=== PATIENT | female | born 1955 | race Caucasian/White ===

== ENCOUNTER 2018-06-24 17:32 | Inpatient (IN) ==
[2018-06-24] MEDS ORDERED: Vancomycin Inj 1,000 MG in Sodium Chlor 0.9% Inj 250 ML IV.SIG STA (17:46)
--- NOTE | 2018-06-24 17:50 | ED ---
HPI General Chief Complaint: Back Pain/Injury Stated Complaint: back pain complaint Time Seen by Provider: 06/24/18 17:46 Source: patient Mode of arrival: ambulatory Limitations: no limitations History of Present Illness HPI Narrative: Patient comes in complaining of a back pain for the past [address] partida orthopedist ordered outpatient noncontrast MRI which showed discitis and r/o osteomyelitis....an outpt MRI with contrast done and read by radiologist as disciitis at t10-t11 MD Complaint: Reports back pain Onset (ago): month(s) (2) Duration: Reports constant Location: Reports thoracic spine Severity: mild Quality: Reports sharp Radiation: Reports none Relieving factors: none Exacerbating factors: none Associated symptoms: Reports denies other symptoms Related Data Home Medications Medication Instructions Recorded Confirmed liothyronine 25 mcg PO DAILY 06/24/18 06/24/18 liothyronine 40 mcg PO DAILY 06/24/18 06/24/18 zolpidem 10 mg PO HS 06/24/18 06/24/18 Allergies Allergy/AdvReac Type Severity Reaction Status Date / Time codeine Allergy Unknown Nausea/Vomi Verified 06/24/18 18:13 ting ANTIHISTAMINES Allergy Severe Rash Uncoded 09/14/13 13:38 Review of Systems ROS: all other systems reviewed are negative PMFSH History History Provided By: Patient Medical History Medical History H/O: hysterectomy (Acute) Hyperthyroidism (Acute) Meniscus degeneration (Acute) Surgical History Surgical History History of appendectomy (Acute) Social History Social History Substance History: No History of Abuse Second Hand Smoke Exposure: No Smoking Status: Never smoker How Often Do You Have a Drink Containing Alcohol: Never Recent Travel in [place] within the Last 8 Weeks: No Recent Out of Country Travel within the Last 8 Weeks: No Exam Narrative Exam Narrative: GENERAL: Well-nourished, well-developed patient in no apparent distress. SKIN: Warm and dry. HEAD: Atraumatic. Normocephalic. EYES: Pupils equal and round. No scleral icterus. No injection or drainage. ENT: No nasal bleeding or discharge. Mucous membranes pink and moist. NECK: Trachea midline. No JVD. CARDIOVASCULAR: Regular rate and rhythm. no rubs or gallops RESPIRATORY: No accessory muscle use. Clear to auscultation. Breath sounds equal bilaterally. GASTROINTESTINAL: Abdomen soft, non-tender, nondistended. No rebound or guarding MUSCULOSKELETAL: Extremities without clubbing, cyanosis, or edema. No obvious deformities. NEUROLOGICAL: Awake and alert. No obvious cranial nerve deficits. Motor grossly within normal limits. Five out of 5 muscle strength in the arms and legs. Normal speech. PSYCHIATRIC: Appropriate mood and affect; insight and judgment normal. Course Initial Documented Vital Signs Temperature 98.7 F 06/24/18 17:38 Pulse Rate 96 H 06/24/18 17:38 Respiratory Rate 17 06/24/18 17:38 Blood Pressure 156/87 H 06/24/18 17:38 Pulse Oximetry 98 06/24/18 17:38 Last Documented Vital Signs Temperature 98.7 F 06/24/18 17:38 Pulse Rate 75 06/24/18 19:00 Respiratory Rate 18 06/24/18 19:00 Blood Pressure 166/75 H 06/24/18 19:00 Pulse Oximetry 99 06/24/18 19:00 Medical Decision Making [facility] Narrative Medical Screen Exam Complete: Yes Emergency Medical Condition: Yes Lab Data Result diagrams: 06/24/18 18:05 06/24/18 19:30 Lab Results 06/24/18 06/24/18 06/24/18 Range/Units 18:05 18:05 18:05 WBC 7.3 (4.0-11.0) th/mm3 RBC 4.96 (4.00-5.30) mil/mm3 Hgb 15.9 H (11.6-15.3) gm/dL Hct 45.8 (35.0-46.0) % MCV 92.4 (80.0-100.0) fL MCH 32.1 (27.0-34.0) pg MCHC 34.7 (32.0-36.0) % RDW 13.3 (11.6-17.2) % Plt Count 201 (150-450) th/mm3 MPV 8.9 (7.0-11.0) fL Neut % (Auto) 49.9 (16.0-70.0) % Lymph % (Auto) 38.2 (9.0-44.0) % [place] % (Auto) 9.9 H (0.0-8.0) % Eos % (Auto) 1.6 (0.0-4.0) % Baso % (Auto) 0.4 (0.0-2.0) % Neut # (Auto) 3.6 (1.8-7.7) th/mm3 Lymph # (Auto) 2.8 (1.0-4.8) th/mm3 [place] # (Auto) 0.7 (0.0-0.9) th/mm3 Eos # (Auto) 0.1 (0.0-0.4) th/mm3 Baso # (Auto) 0.0 (0.0-0.2) th/mm3 WBC Differential . Differential Comment Auto diff final ESR 1 (0-30) mm/hr PT 10.0 (9.8-11.6) sec INR 1.0 Ratio APTT 24.7 (23.4-31.7) sec Sodium (136-145) meq/L Potassium (3.5-5.1) meq/L Chloride (98-107) meq/L Carbon Dioxide (21.0-32.0) meq/L Anion Gap (5-15) meq/L BUN (7-18) mg/dL Creatinine (0.50-1.00) mg/dL Estimated GFR (>89) mL/min Random Glucose (74-106) mg/dL Lactic Acid (0.4-2.0) mmol/L Calcium (8.5-10.1) mg/dL Total Bilirubin (0.2-1.0) mg/dL AST (15-37) U/L ALT (10-53) U/L Alkaline Phosphatase (45-117) U/L C-Reactive Protein (0.00-0.30) mg/dL Total Protein (6.4-8.2) g/dL Albumin (3.4-5.0) g/dL Lipase (73-393) U/L 06/24/18 06/24/18 06/24/18 Range/Units 18:20 19:30 19:30 WBC (4.0-11.0) th/mm3 RBC (4.00-5.30) mil/mm3 Hgb (11.6-15.3) gm/dL Hct (35.0-46.0) % MCV (80.0-100.0) fL MCH (27.0-34.0) pg MCHC (32.0-36.0) % RDW (11.6-17.2) % Plt Count (150-450) th/mm3 MPV (7.0-11.0) fL Neut % (Auto) (16.0-70.0) % Lymph % (Auto) (9.0-44.0) % [place] % (Auto) (0.0-8.0) % Eos % (Auto) (0.0-4.0) % Baso % (Auto) (0.0-2.0) % Neut # (Auto) (1.8-7.7) th/mm3 Lymph # (Auto) (1.0-4.8) th/mm3 [place] # (Auto) (0.0-0.9) th/mm3 Eos # (Auto) (0.0-0.4) th/mm3 Baso # (Auto) (0.0-0.2) th/mm3 WBC Differential Differential Comment ESR (0-30) mm/hr PT (9.8-11.6) sec INR Ratio APTT (23.4-31.7) sec Sodium 143 (136-145) meq/L Potassium 3.8 (3.5-5.1) meq/L Chloride 109 H (98-107) meq/L Carbon Dioxide 29.1 (21.0-32.0) meq/L Anion Gap 5 (5-15) meq/L BUN 12 (7-18) mg/dL Creatinine 0.69 (0.50-1.00) mg/dL Estimated GFR 86 L (>89) mL/min Random Glucose 107 H (74-106) mg/dL Lactic Acid 1.6 (0.4-2.0) mmol/L Calcium 9.0 (8.5-10.1) mg/dL Total Bilirubin 0.3 (0.2-1.0) mg/dL AST 32 (15-37) U/L ALT 53 (10-53) U/L Alkaline Phosphatase 69 (45-117) U/L C-Reactive Protein Less than 0.29 (0.00-0.30) mg/dL Total Protein 7.6 (6.4-8.2) g/dL Albumin 3.9 (3.4-5.0) g/dL Lipase 104 (73-393) U/L Imaging Data Radiologist's impression: Chest X-Ray 06/24/18 17:46 CONCLUSION: No evidence of acute cardiopulmonary disease. Discharge Plan Discharge Disposition Patient Disposition: ED Admit(ED Internal Use Only) Discharge Condition Condition: Fair Discharge Details Diagnosis: Discitis of thoracic region, Osteomyelitis Physicians Team ED Provider: Yobany Castillo Primary Care Provider: UNKNOWN, Rxs /Orders / Referrals /Forms Prescriptions: No Action liothyronine 25 mcg Tablet 25 mcg PO DAILY RF: 0 liothyronine 50 mcg Tablet 40 mcg PO DAILY RF: 0 zolpidem 10 mg Tablet 10 mg PO HS RF: 0 Status ED Status: With Doctor
--- NOTE | 2018-06-24 18:24 | XR ---
EXAM DATE: 06/24/2018 6:16 PM EST AGE/SEX: 63 years / Female INDICATIONS: Fever. CLINICAL DATA: This is the patient's initial encounter. Patient reports that signs and symptoms have been present for 1 day and indicates a pain score of 2/10. MEDICAL/SURGICAL HISTORY: None. None. COMPARISON: No prior exams available for comparison. FINDINGS: A single AP view of the chest demonstrates the lungs to be symmetrically aerated without evidence of mass, infiltrate or effusion. The cardiomediastinal contours are unremarkable. Osseous structures a re intact. CONCLUSION: No evidence of acute cardiopulmonary disease. Electronically signed by: Aravind Cain MD Board Certified Radiologist 06/24/2018 6:22 PM EST
[2018-06-24 18:34] LABS: Baso % (Auto) 0.4 % (0.0-2.0); Eos # (Auto) 0.1 th/mm3 (0.0-0.4); Eos % (Auto) 1.6 % (0.0-4.0); Hematocrit 45.8 % (35.0-46.0); Hemoglobin 15.9 gm/dL (11.6-15.3); Lymph # (Auto) 2.8 th/mm3 (1.0-4.8); Lymph % (Auto) 38.2 % (9.0-44.0); Mean Corpuscular HGB Conc 34.7 % (32.0-36.0); Mean Corpuscular Hemoglobin 32.1 pg (27.0-34.0); Mean Corpuscular Volume 92.4 fL (80.0-100.0); Mean Platelet Volume 8.9 fL (7.0-11.0); Mono # (Auto) 0.7 th/mm3 (0.0-0.9); Mono % (Auto) 9.9 % (0.0-8.0); Neut # (Auto) 3.6 th/mm3 (1.8-7.7); Neut % (Auto) 49.9 % (16.0-70.0); Platelet Count 201 th/mm3 (150-450); Red Blood Count 4.96 mil/mm3 (4.00-5.30); Red Cell Distribution Width 13.3 % (11.6-17.2); White Blood Count 7.3 th/mm3 (4.0-11.0)
[2018-06-24 18:50] LABS: Activated Partial Thrombo Time 24.7 sec (23.4-31.7)
[2018-06-24 20:17] LABS: Alanine Aminotransferase 53 U/L (10-53); Albumin 3.9 g/dL (3.4-5.0); Anion Gap 5 meq/L (5-15); Aspartate Aminotransferase 32 U/L (15-37); Blood Urea Nitrogen 12 mg/dL (7-18); Carbon Dioxide 29.1 meq/L (21.0-32.0); Chloride 109 meq/L (98-107); Glomerular Filtration Rate 86 mL/min (>89); Glucose,Random 107 mg/dL (74-106); Lipase 104 U/L (73-393); Potassium 3.8 meq/L (3.5-5.1); Sodium 143 meq/L (136-145)
[2018-06-24 20:20] LABS: Alkaline Phosphatase 69 U/L (45-117); Total Protein 7.6 g/dL (6.4-8.2)
[2018-06-24] MEDS ORDERED: Vancomycin Consult Pharmacy OTHER PRN (21:00)
[2018-06-24] MEDS ORDERED: Bisacodyl 10 MG Supp RECTAL PRN (21:02)
[2018-06-24] MEDS ORDERED: Acetaminophen 325 MG Tablet PO PRN (21:02)
--- NOTE | 2018-06-24 21:04 | P.HPIM ---
History of Present Illness Primary Care Physician: UNKNOWN History of Present Illness: This is a 63-year-old female with a PMH of Hypothyroidism who was referred to the ER by Dr. Saul with Orthopedic Surgery for abnormal MRI. Pt states she's been having mid/lower back pain for approx 2wks. No injury or trauma noted, no lower extremity weakness or incontinence. Was seen in office by Dr. Saul and referred for MRI, pt states she was called by Dr. Saul today and told MRI was abnormal, imaging showing Disciitis at T10- T11. Dr. West consulted, will evaluate. S/p Vanc/Cefepime in ER. Diagnosis (1) Discitis of thoracic region: (2) Intractable back pain: Inpatient Certification Inpatient Certification: I certify that the inpatient services were ordered in accordance with Medicare regulations governing the order. This includes certification that hospital inpatient services are reasonable and necessary and in the case of services not specified as inpatient-only under 42 CFR 419.22(n), that they are appropriately provided as inpatient services in accordance to with the 2-midnight benchmark under 43 CFR 412.3(e) Estimated Total Length of Stay (Days): 2 Plans for Post Hospital Care: Not yet determined Review of Systems PAST FAMILY HISTORY: Reviewed. No h/o DM or CAD Review of Systems: all other systems reviewed are negative [facility] Medical History Medical History H/O: hysterectomy (Acute) Hyperthyroidism (Acute) Meniscus degeneration (Acute) Surgical History Surgical History History of appendectomy (Acute) Social History Social History Substance History: No History of Abuse Second Hand Smoke Exposure: No Smoking Status: Never smoker How Often Do You Have a Drink Containing Alcohol: Never Recent Travel in [place] within the Last 8 Weeks: No Recent Out of Country Travel within the Last 8 Weeks: No Immunization History Tetanus Immunization: <5 Years Medications and Allergies Allergies Allergy/AdvReac Type Severity Reaction Status Date / Time codeine Allergy Unknown Nausea/Vomi Verified 06/24/18 18:13 ting ANTIHISTAMINES Allergy Severe Rash Uncoded 09/14/13 13:38 Home Medications Medication Instructions Recorded Confirmed Type liothyronine 40 mcg PO EVERY OTHER DAY 06/24/18 06/24/18 History liothyronine 50 mcg PO EVERY OTHER DAY 06/24/18 06/24/18 History zolpidem 10 mg PO HS 06/24/18 06/24/18 History Physical Exam Vital signs: Vital Signs 06/24/18 17:38 06/24/18 18:12 06/24/18 18:18 Temperature 98.7 F Pulse Rate 96 H 94 H 83 Respiratory Rate 17 18 Blood Pressure 156/87 H 178/83 H Pulse Oximetry 98 99 99 06/24/18 19:00 Temperature Pulse Rate 75 Respiratory Rate 18 Blood Pressure 166/75 H Pulse Oximetry 99 Intake & Output 06/24/18 06/24/18 06/25/18 06:59 18:59 06:59 Intake Total 100 / 100 Balance 100 / 100 Weight 64.864 kg Intake: IV 100 / 100 Maxipime Inj 2,000 MG In NS Inj 100 / 100 100 ML @ 200 mls/hr IV.SIG STAT STA Rx#:[id number] Narrative: PE: GENERAL: Very pleasant middle-aged white female in no acute distress. at bedside. SKIN: Focused skin assessment warm and dry. HEENT: PERRLA, EOMI. No scleral icterus or conjunctival pallor. No lid lag or facial droop. CARDIOVASCULAR: Regular rate and rhythm. No obvious murmurs to auscultation. No chest tenderness to palpation. RESPIRATORY: No obvious rhonchi or wheezing. Clear to auscultation. Breath sounds equal bilaterally. GASTROINTESTINAL: Abdomen soft, non-tender, nondistended. BS normal. MUSCULOSKELETAL: Extremities without clubbing, cyanosis, or edema. No obvious deformities. +tenderness to palpation T-spine. NEUROLOGICAL: Awake, alert and oriented x4. No focal neurologic deficits. Moving both upper and lower extremities spontaneously. PSYCHIATRIC: Appropriate mood and affect. Insight and judgment normal. Results Labs CBC & Chem 7: 06/24/18 18:05 06/24/18 19:30 Imaging Impressions Chest X-Ray 06/24/18 17:46 CONCLUSION: No evidence of acute cardiopulmonary disease. Caprini VTE Risk Assessment Caprini VTE Risk Assessment: No/Low Risk (score <= 1) Caprini Risk Assessment Model: Point Value = 1 Point Value = 2 Point Value = 3 Point Value = 5 Age 41-60 Minor surgery BMI > 25 kg/m2 Swollen legs Varicose veins or History of unexplained or recurrent spontaneous Oral contraceptives or hormone replacement Sepsis (< 1 month) Serious lung disease, including pneumonia (< 1 month) Abnormal pulmonary function Acute myocardial infarction Congestive heart failure (< 1 month) History of inflammatory bowel disease Medical patient at bed rest Age 61-74 Arthroscopic surgery Major open surgery (> 45 min) Laparoscopic surgery (> 45 min) Malignancy Confined to bed (> 72 hours) Immobilizing plaster cast Central venous access Age >= 75 History of VTE Family history of VTE Factor V Leiden Prothrombin [id number] Lupus anticoagulant Anticardiolipin antibodies Elevated serum homocysteine Heparin-induced thrombocytopenia Other congenital or acquired thrombophilia Stroke (< 1 month) Elective arthroplasty Hip, pelvis, or leg fracture Acute spinal cord injury (< 1 month) Prophylaxis Regimen: Total Risk Factor Score Risk Level Prophylaxis Regimen 0-1 Low Early ambulation 2 Moderate Order ONE of the following: *Sequential Compression Device (SCD) *Heparin 5000 units SQ BID 3-4 Higher Order ONE of the following medications: *Heparin 5000 units SQ TID *Enoxaparin/Lovenox 40 mg SQ daily (WT < 150 kg, CrCl > 30 mL/min) *Enoxaparin/Lovenox 30 mg SQ daily (WT < 150 kg, CrCl > 10-29 mL/min) *Enoxaparin/Lovenox 30 mg SQ BID (WT < 150 kg, CrCl > 30 mL/min) AND/OR *Sequential Compression Device (SCD) 5 or more Highest Order ONE of the following medications: *Heparin 5000 units SQ TID (Preferred with Epidurals) *Enoxaparin/Lovenox 40 mg SQ daily (WT < 150 kg, CrCl > 30 mL/min) *Enoxaparin/Lovenox 30 mg SQ daily (WT < 150 kg, CrCl > 10-29 mL/min) *Enoxaparin/Lovenox 30 mg SQ BID (WT < 150 kg, CrCl > 30 mL/min) AND *Sequential Compression Device (SCD) Assessment and Plan (1) Discitis of thoracic region: Code(s): M46.44 - Discitis, unspecified, thoracic region Status: Acute (2) Intractable back pain: Code(s): M54.9 - Dorsalgia, unspecified Status: Acute Plan A/P: 1. Discitis: T10-T11. Outpatient MRI w/ evidence of discitis vs osteomyelitis at T10-T11, Dr. West consulted, findings more consistent w/ discitis, however will evaluate further. Continue IV Abx, consult Dr. Saul for further eval. 2. Intractable Back Pain: secondary to above, will continue w/ home Tramadol as needed 3. DVT Prophylaxis: SCD/Teds 4. Social work for d/c planning as needed. 5. Case discussed at length with the ER physician, labs/records/imaging reviewed by me.
--- NOTE | 2018-06-24 22:52 | P.CONNS ---
History of Present Illness Service: Neurosurgery Consult date: 06/24/18 Requesting Physician: Yobany Castillo Reason for Consult: Discitis Primary Care Provider: UNKNOWN Chief Complaint: back pain History of Present Illness: I was asked by Dr. Castillo to see and evaluate this 63 yo female who comes in to [facility] ED with a 2 month history of back pain. apparently dr partida orthopedist ordered an outpt MRI with contrast done and read by radiologist as disciitis at t10-t11 Review of Systems All other systems reviewed negative except as stated in HPI PMFSH - History History Provided By: Patient - Medical History Medical History: Medical History (Last Reviewed 06/24/18 @ 22:51 by Gaurang Manning MD) H/O: hysterectomy Hyperthyroidism Meniscus degeneration - Surgical History Surgical History: Surgical History (Last Reviewed 06/24/18 @ 22:51 by Gaurang Manning MD) History of appendectomy - Tobacco History Second Hand Smoke Exposure: No Smoking Status: Never smoker - Alcohol History How Often Do You Have a Drink Containing Alcohol: Never - Substance Use History Substance History: No History of Abuse - Travel History Recent Travel in the [place] Within the Last 8 Weeks: No Recent Travel Out of the Country Within the Last 8 Weeks: No - Immunization History Tetanus Immunization: <5 Years Medications and Allergies Active Medications: Active Medications Acetaminophen (Tylenol) 650 mg PO Q4H PRN PRN Reason: Temp > 100.4 Al Hydroxide/Mg Hydroxide (Milk Of Magnesia Liq) 30 ml PO Q12H PRN PRN Reason: Mild Constipation Bisacodyl (Dulcolax Supp) 10 mg RECTAL DAILY PRN PRN Reason: SEVERE CONSITIPATION Cefepime HCl 1,000 mg/ Sodium (Chloride) 100 mls @ 200 mls/hr IV.SIG Q12H RISHI Lactulose (Lactulose Liq) 30 ml PO DAILY PRN PRN Reason: SEVERE CONSITIPATION Liothyronine Sodium (Cytomel) 25 mcg PO DAILY RISHI Liothyronine Sodium (Cytomel) 40 mcg PO DAILY RISHI Ondansetron HCl (Zofran Inj) 4 mg IV.PUSH Q6H PRN PRN Reason: NAUSEA OR VOMITING Pharmacy Profile Note (Vancomycin Consult Pharmacy) 1 each OTHER UNSCH PRN PRN Reason: Pharmacy to dose Senna/Docusate Sodium (Suzi-Colace) 1 tab PO BID RISHI Sennosides (Senokot) 17.2 mg PO Q12H PRN PRN Reason: Moderate Constipation Sodium Chloride (Ns Flush) 2 ml IV.FLUSH BID [facility] Sodium Chloride (Ns Flush) 2 ml IV.FLUSH PRN PRN PRN Reason: FLUSH AFTER USING IV ACCESS Tramadol HCl (Ultram) 50 mg PO Q6H PRN PRN Reason: PAIN SCALE 3 TO 5 Tramadol HCl (Ultram) 100 mg PO Q6H PRN PRN Reason: PAIN SCALE 6 TO 10 Zolpidem Tartrate (Ambien) 10 mg PO [facility] Allergies Allergy/AdvReac Type Severity Reaction Status Date / Time codeine Allergy Unknown Nausea/Vomi Verified 06/24/18 18:13 ting ANTIHISTAMINES Allergy Severe Rash Uncoded 09/14/13 13:38 Home Medications Medication Instructions Recorded Confirmed Type liothyronine 40 mcg PO EVERY OTHER DAY 06/24/18 06/24/18 History liothyronine 50 mcg PO EVERY OTHER DAY 06/24/18 06/24/18 History zolpidem 10 mg PO HS 06/24/18 06/24/18 History Exam Vital signs: Vital Signs 06/24/18 17:38 06/24/18 18:12 06/24/18 18:18 Temperature 98.7 F Pulse Rate 96 H 94 H 83 Respiratory Rate 17 18 Blood Pressure 156/87 H 178/83 H Pulse Oximetry 98 99 99 06/24/18 19:00 06/24/18 21:00 Temperature Pulse Rate 75 69 Respiratory Rate 18 18 Blood Pressure 166/75 H 189/91 H Pulse Oximetry 99 99 Intake & Output 06/24/18 06/24/18 06/25/18 06:59 18:59 06:59 Intake Total 100 / 100 250 / 250 Balance 100 / 100 250 / 250 Weight 64.864 kg Intake: IV 100 / 100 250 / 250 Maxipime Inj 2,000 MG In NS Inj 100 / 100 100 ML @ 200 mls/hr IV.SIG STAT STA Rx#:[id number] Vancomycin Inj 1,000 MG In NS 250 / 250 Inj 250 ML @ 250 mls/hr IV.SIG STAT STA Rx#:[id number] - Constitutional no acute distress, cooperative - Routine HEENT Exam Head: Present: normocephalic, atraumatic Eye: Present: EOMI, normal accommodation ENT: Present: mucous membranes moist, oropharynx clear - Routine Neck Exam Present: supple, full ROM - Routine Respiratory Exam Present: CTA bilaterally - Routine Cardiovascular Exam Present: RRR - Routine Abdominal Exam Present: soft, normoactive bowel sounds - Routine Extremities Exam Present: full ROM, pulses intact, normal capillary refill - Routine Skin Exam Present: intact, warm, normal turgor - Routine Neurological Exam Present: alert, oriented X3, CN II-XII intact, moving all extremities, normal tone, vision grossly intact, hearing grossly intact, normal speech - Detailed Neurological Exam: Coma Scale Eye Opening: Spontaneous Verbal Response: Oriented Motor Response: Obey commands [place] Coma Scale Total: 15 - Routine Psychiatric Exam Present: normal affect, normal thought process, cooperative Results - Laboratory Findings CBC and BMP: 06/24/18 18:05 06/24/18 19:30 Abnormal lab findings: Abnormal Labs 06/24/18 06/24/18 18:05 19:30 Hgb 15.9 H [place] % (Auto) 9.9 H Chloride 109 H Estimated GFR 86 L Random Glucose 107 H - Diagnostic Findings Chest x-ray: report reviewed, image reviewed Assessment and Plan - Plan 63 yr old female with 6-7 8 week history of progressive mid-back pain Neuro: non-focal WBC, ESR 1, CRP < .29 T-spine MRI shows T-10/11 endplate changes and disc disease Inflammatory markers are not consistent with osteomyelitis or discitis. No indication for antibiotic therapy at this time. No indication for Neurosurgical intyervention. Will sign off and be available as needed
[2018-06-25 00:46] VITALS: O2SAT 96
[2018-06-25 05:42] LABS: Hematocrit 42.2 % (35.0-46.0); Hemoglobin 14.6 gm/dL (11.6-15.3); Mean Corpuscular HGB Conc 34.5 % (32.0-36.0); Mean Corpuscular Hemoglobin 31.9 pg (27.0-34.0); Mean Corpuscular Volume 92.5 fL (80.0-100.0); Mean Platelet Volume 8.4 fL (7.0-11.0); Platelet Count 162 th/mm3 (150-450); Red Blood Count 4.56 mil/mm3 (4.00-5.30); Red Cell Distribution Width 12.7 % (11.6-17.2); White Blood Count 5.8 th/mm3 (4.0-11.0)
[2018-06-25 06:05] LABS: Albumin 3.6 g/dL (3.4-5.0); Anion Gap 5 meq/L (5-15); Aspartate Aminotransferase 26 U/L (15-37); Blood Urea Nitrogen 12 mg/dL (7-18); Calcium 8.8 mg/dL (8.5-10.1); Chloride 110 meq/L (98-107); Glomerular Filtration Rate 89 mL/min (>89); Glucose,Random 76 mg/dL (74-106); Potassium 3.7 meq/L (3.5-5.1); Sodium 143 meq/L (136-145)
[2018-06-25 06:07] LABS: Alanine Aminotransferase 49 U/L (10-53)
[2018-06-25 06:09] LABS: Alkaline Phosphatase 67 U/L (45-117); Total Protein 7.1 g/dL (6.4-8.2)
[2018-06-25 08:50] VITALS: RESP 17
[2018-06-25] MEDS ORDERED: Senna/Docusate Sodium 8.6/50 MG Tablet PO SCH (09:00)
--- NOTE | 2018-06-25 09:05 | P.PNIM ---
Subjective Interval history: f/u; possible discitis in no acute distress. looks comfortable. pain is controlled. no fever. Physical Exam Vital signs: Vital Signs 06/24/18 17:38 06/24/18 18:12 06/24/18 18:18 Temperature 98.7 F Pulse Rate 96 H 94 H 83 Respiratory Rate 17 18 Blood Pressure 156/87 H 178/83 H Pulse Oximetry 98 99 99 06/24/18 19:00 06/24/18 21:00 06/25/18 00:00 Temperature 97.9 F Pulse Rate 75 69 63 Respiratory Rate 18 18 18 Blood Pressure 166/75 H 189/91 H 159/71 H Pulse Oximetry 99 99 96 06/25/18 08:00 Temperature 98.1 F Pulse Rate 69 Respiratory Rate 17 Blood Pressure 119/71 Pulse Oximetry 96 Intake & Output 06/24/18 06/25/18 06/25/18 18:59 06:59 18:59 Intake Total 100 / 100 610 / 610 Balance 100 / 100 610 / 610 Weight 64.864 kg 69 kg Intake: IV 100 / 100 250 / 250 Maxipime Inj 2,000 MG In NS Inj 100 / 100 100 ML @ 200 mls/hr IV.SIG STAT STA Rx#:[id number] Vancomycin Inj 1,000 MG In NS 250 / 250 Inj 250 ML @ 250 mls/hr IV.SIG STAT STA Rx#:[id number] Oral 360 / 360 Other: # Voids 2 Date of Last Bowel Movement 06/24/18 Weight On Admission 64.86 kg Constitutional no acute distress Routine Respiratory Exam Present CTA bilaterally Routine Cardiovascular Exam Present RRR Routine Abdominal Exam Present soft Routine Extremities Exam Comments: no pedal edema. Routine Neurological Exam Present alert and oriented X3 Results Labs CBC & Chem 7: 06/25/18 03:59 06/25/18 03:59 Imaging Imaging: Impressions Chest X-Ray 06/24/18 17:46 CONCLUSION: No evidence of acute cardiopulmonary disease. Assessment and Plan Plan A/P 1. questionable Discitis: T10-T11. Outpatient MRI w/ evidence of discitis vs osteomyelitis at T10-T11. neurosurgery consult appreciated and recommended no antibiotics or surgical intervention at this time. awaiting ortho evaluation. blood cultures pending. 2. Back Pain: better today. 3. DVT Prophylaxis: SCD/Teds Discharge Planning: home after seen and cleared by ortho. Progress Note: Quality VTE Deep Vein Thrombosis/Pulmonary Embolism Present on Admission: No
[2018-06-25 09:26] LABS: Eosinophils 4 % (0-4); Lymphocytes 45 % (9-44); Monocytes 5 % (0-8); Platelet Estimate Normal (Normal); Platelet Morphology Normal (Normal)
[2018-06-25] MEDS: Liothyronine 5 MCG Tablet PO SCH ×2 (10:04)
--- NOTE | 2018-06-25 10:36 | P.CONOP ---
[facility] Orthopedics Consult Note - [facility] Consult date: 06/25/18 Requesting physician: Kristine Jones Consult reason: back pain Chief complaint: Discitis Narrative: History of Present Illness: This is a 63-year-old female with a PMH of Hypothyroidism who was referred to the ER by Dr. Saul with Orthopedic Surgery for abnormal MRI. Pt states she's been having mid/lower back pain for approx 2wks. No injury or trauma noted, no lower extremity weakness or incontinence. Was seen in office by Dr. Saul and referred for MRI, pt states she was called by Dr. Saul 06/24/18 and told MRI was abnormal, imaging showing Disciitis at T10 -T11. S/p Vanc/Cefepime in ER. The patient was evaluated by neurosurgery. It is not felt that she has an infectious discitis or acute findings and recommendations have been for discharge pending orthopedic evaluation. The patient does have a scheduled appointment with Dr. Lamas, spine surgery, next week. Patient states her pain is tolerable. Review of Systems All other systems reviewed negative except as stated in [facility] - History History Provided By: Patient - Medical History Medical History: Medical History (Last Reviewed 06/25/18 @ 08:01 by Rosales Decker) H/O: hysterectomy Hyperthyroidism Meniscus degeneration - Surgical History Surgical History: Surgical History (Last Reviewed 06/25/18 @ 08:01 by Rosales Decker) History of appendectomy - Tobacco History Second Hand Smoke Exposure: No Smoking Status: Never smoker - Alcohol History How Often Do You Have a Drink Containing Alcohol: 2 to 4 times a month - Substance Use History Substance History: No History of Abuse - Travel History Recent Travel in the [place] Within the Last 8 Weeks: No Recent Travel Out of the Country Within the Last 8 Weeks: No - Immunization History Tetanus Immunization: <5 Years Hx Influenza Vaccine This Season: Yes Medications and Allergies Active Medications: Active Medications Acetaminophen (Tylenol) 650 mg PO Q4H PRN PRN Reason: Temp > 100.4 Al Hydroxide/Mg Hydroxide (Milk Of Magnjayme Liq) 30 ml PO Q12H PRN PRN Reason: Mild Constipation Bisacodyl (Dulcolax Supp) 10 mg RECTAL DAILY PRN PRN Reason: SEVERE CONSITIPATION Cefepime HCl 1,000 mg/ Sodium (Chloride) 100 mls @ 200 mls/hr IV.SIG Q12H RISHI Last Admin: 06/25/18 10:05 Dose: Not Given Lactulose (Lactulose Liq) 30 ml PO DAILY PRN PRN Reason: SEVERE CONSITIPATION Liothyronine Sodium (Cytomel) 25 mcg PO Q48H [facility] Last Admin: 06/25/18 10:04 Dose: 25 mcg Liothyronine Sodium (Cytomel) 15 mcg PO Q48H [facility] Last Admin: 06/25/18 10:04 Dose: 15 mcg Ondansetron HCl (Zofran Inj) 4 mg IV.PUSH Q6H PRN PRN Reason: NAUSEA OR VOMITING Pharmacy Profile Note (Vancomycin Consult Pharmacy) 1 each OTHER UNSCH PRN PRN Reason: Pharmacy to dose Senna/Docusate Sodium (Suzi-Colace) 1 tab PO BID [facility] Last Admin: 06/25/18 10:05 Dose: Not Given Sennosides (Senokot) 17.2 mg PO Q12H PRN PRN Reason: Moderate Constipation Sodium Chloride (Ns Flush) 2 ml IV.FLUSH BID [facility] Last Admin: 06/25/18 10:05 Dose: 2 ml Sodium Chloride (Ns Flush) 2 ml IV.FLUSH PRN PRN PRN Reason: FLUSH AFTER USING IV ACCESS Tramadol HCl (Ultram) 25 mg PO Q6H PRN PRN Reason: Pain 1 to 10 Last Admin: 06/25/18 00:50 Dose: 25 mg Zolpidem Tartrate (Ambien) 10 mg PO [facility] Last Admin: 06/25/18 00:53 Dose: 10 mg Allergies Allergy/AdvReac Type Severity Reaction Status Date / Time codeine Allergy Unknown Nausea/Vomi Verified 06/24/18 18:13 ting morphine Allergy Tachycardia Verified 06/25/18 00:11 ANTIHISTAMINES Allergy Severe Rash Uncoded 09/14/13 13:38 Home Medications Medication Instructions Recorded Confirmed Type liothyronine 40 mcg PO EVERY OTHER DAY 06/24/18 06/24/18 History liothyronine 50 mcg PO EVERY OTHER DAY 06/24/18 06/24/18 History zolpidem 10 mg PO HS 06/24/18 06/24/18 History Exam Vital signs: Vital Signs 06/24/18 17:38 06/24/18 18:12 06/24/18 18:18 Temperature 98.7 F Pulse Rate 96 H 94 H 83 Respiratory Rate 17 18 Blood Pressure 156/87 H 178/83 H Pulse Oximetry 98 99 99 06/24/18 19:00 06/24/18 21:00 06/25/18 00:00 Temperature 97.9 F Pulse Rate 75 69 63 Respiratory Rate 18 18 18 Blood Pressure 166/75 H 189/91 H 159/71 H Pulse Oximetry 99 99 96 06/25/18 08:00 Temperature 98.1 F Pulse Rate 69 Respiratory Rate 17 Blood Pressure 119/71 Pulse Oximetry 96 Intake & Output 06/24/18 06/25/18 06/25/18 18:59 06:59 18:59 Intake Total 100 / 100 610 / 610 Balance 100 / 100 610 / 610 Weight 64.864 kg 69 kg Intake: IV 100 / 100 250 / 250 Maxipime Inj 2,000 MG In NS Inj 100 / 100 100 ML @ 200 mls/hr IV.SIG STAT STA Rx#:[id number] Vancomycin Inj 1,000 MG In NS 250 / 250 Inj 250 ML @ 250 mls/hr IV.SIG STAT STA Rx#:[id number] Oral 360 / 360 Other: # Voids 2 Date of Last Bowel Movement 06/24/18 Weight On Admission 64.86 kg - Constitutional no acute distress, average body habitus - Routine HEENT Exam Head: Present: normocephalic, atraumatic - Routine Neck Exam Present: supple, full ROM - Routine Abdominal Exam Present: soft - Routine Extremities Exam Present: full ROM, pulses intact, normal capillary refill. Absent: cyanosis, clubbing, edema - Routine Back/Spine/Pelvis Exam Back/Spine: Present: vertebral tenderness, pain with flexion. Absent: muscle spasm, erythema, warmth - Routine Skin Exam Present: intact - Routine Neurological Exam Present: alert, oriented X3, CN II-XII intact. Absent: sensory deficit, motor deficit Results - Labs Result Diagrams: 06/25/18 03:59 06/25/18 03:59 Labs: Laboratory Results - last 24 hr 06/24/18 06/24/18 06/24/18 18:05 18:05 18:05 WBC 7.3 RBC 4.96 Hgb 15.9 H Hct 45.8 MCV 92.4 MCH 32.1 MCHC 34.7 RDW 13.3 Plt Count 201 MPV 8.9 Prelim Diff (Auto) Neut % (Auto) 49.9 Lymph % (Auto) 38.2 [place] % (Auto) 9.9 H Eos % (Auto) 1.6 Baso % (Auto) 0.4 Neut # (Auto) 3.6 Lymph # (Auto) 2.8 [place] # (Auto) 0.7 Eos # (Auto) 0.1 Baso # (Auto) 0.0 WBC Differential . Seg Neuts % (Manual) Band Neuts % (Manual) Lymphocytes % (Manual) Monocytes % (Manual) Eosinophils % (Manual) Basophils % (Manual) Abs Neuts (Manual) Differential Comment Auto diff final Platelet Estimate Platelet Morphology ESR 1 PT 10.0 INR 1.0 APTT 24.7 Sodium Potassium Chloride Carbon Dioxide Anion Gap BUN Creatinine Estimated GFR Random Glucose Lactic Acid Calcium Total Bilirubin AST ALT Alkaline Phosphatase C-Reactive Protein Total Protein Albumin Lipase 06/24/18 06/24/18 06/24/18 18:20 19:30 19:30 WBC RBC Hgb Hct MCV MCH MCHC RDW Plt Count MPV Prelim Diff (Auto) Neut % (Auto) Lymph % (Auto) [place] % (Auto) Eos % (Auto) Baso % (Auto) Neut # (Auto) Lymph # (Auto) [place] # (Auto) Eos # (Auto) Baso # (Auto) WBC Differential Seg Neuts % (Manual) Band Neuts % (Manual) Lymphocytes % (Manual) Monocytes % (Manual) Eosinophils % (Manual) Basophils % (Manual) Abs Neuts (Manual) Differential Comment Platelet Estimate Platelet Morphology ESR PT INR APTT Sodium 143 Potassium 3.8 Chloride 109 H Carbon Dioxide 29.1 Anion Gap 5 BUN 12 Creatinine 0.69 Estimated GFR 86 L Random Glucose 107 H Lactic Acid 1.6 Calcium 9.0 Total Bilirubin 0.3 AST 32 ALT 53 Alkaline Phosphatase 69 C-Reactive Protein Less than 0.29 Total Protein 7.6 Albumin 3.9 Lipase 104 06/25/18 06/25/18 03:59 03:59 WBC 5.8 RBC 4.56 Hgb 14.6 Hct 42.2 MCV 92.5 MCH 31.9 MCHC 34.5 RDW 12.7 Plt Count 162 MPV 8.4 Prelim Diff (Auto) Manual diff required Neut % (Auto) Lymph % (Auto) [place] % (Auto) Eos % (Auto) Baso % (Auto) Neut # (Auto) Lymph # (Auto) [place] # (Auto) Eos # (Auto) Baso # (Auto) WBC Differential Manual diff final Seg Neuts % (Manual) 44 Band Neuts % (Manual) 1 Lymphocytes % (Manual) 45 H Monocytes % (Manual) 5 Eosinophils % (Manual) 4 Basophils % (Manual) 1 Abs Neuts (Manual) 2.6 Differential Comment . Platelet Estimate Normal Platelet Morphology Normal ESR PT INR APTT Sodium 143 Potassium 3.7 Chloride 110 H Carbon Dioxide 28.0 Anion Gap 5 BUN 12 Creatinine 0.67 Estimated GFR 89 Random Glucose 76 Lactic Acid Calcium 8.8 Total Bilirubin 0.3 AST 26 ALT 49 Alkaline Phosphatase 67 C-Reactive Protein Total Protein 7.1 Albumin 3.6 Lipase - Diagnostic results Imaging: Impressions Chest X-Ray 06/24/18 17:46 CONCLUSION: No evidence of acute cardiopulmonary disease. Assessment and Plan - Problem List (1) Degenerative joint disease of thoracic spine Code(s): M47.814 - Spondylosis without myelopathy or radiculopathy, thoracic region Status: Acute - Assessment and Plan 63 yr old female with 6-7 8 week history of progressive mid-back pain Neuro: non-focal WBC, ESR 1, CRP < .29 T-spine MRI shows T-10/11 endplate changes and disc disease, disc herniation T5- T6 Inflammatory markers are not consistent with osteomyelitis or discitis. Neurosurgery cleared patient. Okay for discharge from an orthopedic standpoint with follow-up as scheduled with Dr. Lamas
[2018-06-25 12:10] VITALS: BP 124/55; PULSE 72; TEMP 98.2
[2018-06-25] MEDS ORDERED: Vancomycin Inj 1,250 MG in Sodium Chlor 0.9% Inj 250 ML IV.SIG SCH (13:00)
[2018-06-27] MEDS ORDERED: Pharmacy Ordered Lab Info OTHER ONE (00:45)
== END 2018-06-25 14:42 | disposition home or self-care (01) | DRG 552 ==
LOC: NEPE 17:32 → NEDA 20:49 → N07 23:26
PROVIDERS: ADMIT Internal Medicine; ATTEND Internal Medicine
DX: M47.814 Spondylosis without myelopathy or radiculopathy, thoracic region; Z88.5 Allergy status to narcotic agent; E03.9 Hypothyroidism, unspecified
CPT/HCPCS: 71010; 71045; 80053; 83605; 83690; 85025; 85610; 85651; 85652; 85730; 86140; 87040; 90765; 90766; 90767; 96365; 96366; 96367; 97161; 99285; J0692; J3370; J7050